=== PATIENT | female | born 1970 | race Caucasian/White ===

== ENCOUNTER → 2016-11-19 | Outpatient (CLI) | payer BC ==
[~2016-11-19] MED LIST: ALBUAER19 INH; CHOL400T PO; CYAN10004 PO
== END | disposition home or self-care (01) ==
LOC: C.PAPS 10:13
PROVIDERS: ATTEND Obstetrics & Gynecology
DX: Z01.419 Encounter for gynecological examination (general) (routine) without abnormal findings (principal); Z87.42 Personal history of other diseases of the female genital tract; R87.616 Satisfactory cervical smear but lacking transformation zone

== ENCOUNTER → 2017-10-17 | Outpatient (CLI) | payer BC ==
--- NOTE | 2017-10-18 15:32 | MAMMOGRAPHY REPORT ---
BILATERAL DIGITAL SCREENING MAMMOGRAM TOMOSYNTHESIS WITH CAD: 10/17/2017 CLINICAL HISTORY: Routine screening. Patient has no complaints. TECHNIQUE: Breast tomosynthesis in addition to standard 2D mammography was performed. Current study was also evaluated with a Computer Aided Detection (CAD) system. COMPARISON: Comparison is made to exams dated: 10/16/2016 mammogram, 10/12/2015 mammogram, 4 mammogram, 10/09/2013 mammogram, 10/07/2012 mammogram, and 07/30/2011 mammogram - [facility]. BREAST COMPOSITION: The tissue of both breasts is extremely dense, which lowers the sensitivity of m ammography. FINDINGS: There is an 18 mm asymmetry seen within the right superior posterior breast overlying the right pectoralis muscle on the MLO view, which likely represents normal overlapping fibroglandular ti ssue although spot compression tomosynthesis views, repeat right MLO view with the nipple in profile, and possible breast ultrasound are recommended for further evaluation. The remainder of both breasts are stable compared to prior exams, without suspicious masses, calcific ations, or areas of architectural distortion noted. Other bilateral asymmetries and scattered bilate ral benign-appearing calcifications are not significantly changed. IMPRESSION: ACR BI-RADS CATEGORY 0: INCOMPLETE EVALUATION: NEED ADDITIONAL IMAGING EVALUATION Right breast asymmetry, for which additional imaging evaluation is recommended. The patient will be called to schedule an appointment. Approximately 10% of breast cancers are not detected with mammography. A negative mammographic report should not delay biopsy if a clinically suggestive mass is present. Mnoy Cary M.D. ah/:10/17/2017 16:59:03 Video Game Designer: Carline HARMAN(Jenna)([place]onel)([place]), [facility] letter sent: Addl Imaging 0 BI-RADS Code: ACR BI-RADS Category 0: Incomplete Evaluation: Need Additional Imaging Evaluation
== END | disposition home or self-care (01) ==
LOC: C.MAMM 08:17
PROVIDERS: ATTEND Internal Medicine
DX: Z12.31 Encounter for screening mammogram for malignant neoplasm of breast (principal); N64.89 Other specified disorders of breast

== ENCOUNTER → 2017-11-06 | Outpatient (CLI) | payer BC ==
--- NOTE | 2017-11-06 15:32 | MAMMOGRAPHY REPORT ---
UNILATERAL RIGHT DIGITAL DIAGNOSTIC MAMMOGRAM TOMOSYNTHESIS AND TARGETED RIGHT ULTRASOUND: 11/06/2017 CLINICAL HISTORY: 47-year-old woman called back from screening mammography for an 18 mm asymmetry in the superior posterior right breast on the MLO view. TECHNIQUE: Exaggerated lateral right CC tomosynthesis and spot compression MLO right tomosynthesis i mages were obtained. COMPARISON: Comparison is made to exams dated: 10/17/2017 mammogram, 10/16/2016 mammogram, 5 mammogram, 10/11/2014 mammogram, 10/09/2013 mammogram, and 10/07/2012 mammogram - [facility]. BREAST COMPOSITION: The tissue of the right breast is extremely dense, which lowers the sensitivity of mammography. FINDINGS: The spot compression MLO tomosynthesis view of the right breast demonstrates near complete effacement of the 18 mm asymmetry seen on recent screening mammogram. There is no suspicious mass or definite corresponding abnormality on the exaggerated lateral CC tomosynthesis images. There are di ffuse benign-appearing microcalcifications in the visualized right breast. Targeted ultrasound was performed at the superior right breast including the right axilla. Sonograph ically normal dense glandular tissue is seen without a suspicious solid or cystic mass. No definite sonographic correlate for the effacing mammographic asymmetry. IMPRESSION: ACR-BI-RADS CATEGORY 3: PROBABLY BENIGN, TARGETED ULTRASOUND ACR-BI-RADS CATEGORY 3: PRO BABLY BENIGN 1. Near complete effacement of the 18 mm asymmetry in the superior posterior right breast on the MLO view, and no suspicious sonographic correlate identified. Although this most likely represented nor mal overlapping fibroglandular tissue, a short interval follow-up right diagnostic tomosynthesis mamm ogram and possible repeat ultrasound is recommended to ensure stability in 6 months. These results and recommendations were discussed with the patient at the time of the exam. Approximately 10% of breast cancers are not detected with mammography. A negative mammographic report should not delay biopsy if a clinically suggestive mass is present. Olga Norman M.D. ay/:11/06/2017 10:38:48 Health Information Coder: Gonzalez HARMAN(Jenna)(Leonel), [facility] letter sent: Follow Up Recommended 3 BI-RADS Code: ACR-BI-RADS Category 3: Probably Benign Ultrasound BI-RADS: ACR-BI-RADS Category 3: Pr obably Benign
== END | disposition home or self-care (01) ==
LOC: C.MAMM 09:55
PROVIDERS: ATTEND Internal Medicine
DX: R92.8 Other abnormal and inconclusive findings on diagnostic imaging of breast (principal)